=== PATIENT | male | born 1935 | race Caucasian/White ===

== ENCOUNTER 2017-07-21 11:41 | Inpatient (IN) | payer OTHER, MEDICARE ==
[~2017-07-21] VITALS: Ht 177.8 cm; Wt 87.3 kg
--- NOTE | ~2017-07-21 | HC ---
[facility] [place] [address] CONSULTATION Name: DAODINA Room #: 215-[facility] IN M.R.#: [id number] Admission: 07/21/17 Attend Phys: Spenser Workman MD Discharge: Date of : 34 Report #: [id number] THIS REPORT FOR: //name// CC: FAM unknown Spenser Workman DATE OF SERVICE: 07/21/2017 REASON FOR CONSULTATION: Myocardial infarction. HISTORY OF PRESENT ILLNESS: The patient is an 82-year-old gentleman, with a history of hypertension, presented with a history of exertional chest pain and shortness of breath. He was seen at [facility] Emergency Department where an initial EKG demonstrated sinus bradycardia with nonspecific intraventricular conduction delay. He had recurrent pain in the Emergency Department and a followup EKG demonstrated anterolateral injury pattern. He has had treatment with heparin and aspirin and has ongoing pain. He was life-flighted to [facility]. No prior history of myocardial infarction. He denies heart failure symptoms including orthopnea, paroxysmal nocturnal dyspnea or lower extremity edema. No history of palpitations, near syncope or syncope. ALLERGIES: No known drug allergies. MEDICATIONS: He takes no medicines regularly. PAST MEDICAL HISTORY: His past history and medical records have been reviewed and include a history of appendectomy, cholecystectomy, hypertension. SOCIAL HISTORY: He is a former smoker, but it has been many years since he smoked. FAMILY HISTORY: Notable for a brother who had a heart attack. REVIEW OF SYSTEMS: All systems negative except as that noted above. PHYSICAL EXAMINATION: GENERAL: He is a pleasant gentleman, in mild to moderate ongoing distress. VITAL SIGNS: Blood pressure is 124/69, heart rate of 50 and regular, respirations unlabored, saturations 96% on room air. HEENT: There are neither xanthelasma, subcutaneous xanthomata, oral mucosal or digital cyanosis or kyphoscoliosis present. CHEST: Clear to auscultation and percussion. CARDIOVASCULAR: Regular rate and rhythm with distant heart sounds. ABDOMEN: Soft and nontender. EXTREMITIES: Without cyanosis, clubbing or edema. Radial pulses are 2+. NEUROLOGIC: He is alert with a nonfocal exam. [facility] [address] [place] [address] CONSULTATION Name: DINA DAO Room #: 215-P [facility] IN .R.#: [id number] Admission: 07/21/17 Attend Phys: Spenser Workman MD Discharge: Date of : 34 Report #: [id number] LABORATORY DATA: EKG as detailed above. Coagulation parameters are normal. White count 7.8, hemoglobin 14, magnesium 2.1, platelet count 288, creatinine 1.1, potassium 3.6. IMPRESSION: 1. Acute anterolateral myocardial infarction. 2. Hypertension. 3. Unknown lipid status. RECOMMENDATIONS: 1. Anticoagulant and antiplatelet therapy. 2. Hold beta blockade for now due to relative bradycardia. 3. Urgent coronary angiography. I have outlined the angiographic procedure in detail including its associated risks as well as the risks associated with a percutaneous intervention. After a thorough discussion of the procedure, risks and alternatives and after answering his questions, he is agreeable to proceeding. <ELECTRONICALLY SIGNED> By: James Naik MD, FACC 07/24/17 0854 1222 50 James Naik MD, FACC /nt
--- NOTE | ~2017-07-21 | CATHLAB ---
[facility] [address] [place] [address] INVASIVE PROCEDURE REPORT Name: DAOFREDDYTRISH Room #: 215-P ADM IN M.R.#: [id number] Admission: 07/21/17 Attend Phys: Spenser Workman MD Discharge: Date of : 34 Date of Service: 07/21/17 1341 Report #: [id number] THIS REPORT FOR: //name// APPROVED REPORT Study performed: 07/21/2017 11:56:24 Patient Details Patient Status: In-Patient Room #: The patient is a 82 year-old male Event Personnel James Naik General Accountant, Gricelda Brown RTR Monitor, Spring Quiroga Monitor, Gage Gonzalez RN RN, Lanny Nuñez RN RN, Delmis Geller RTR, PROVISIONING ANALYST Scrub Procedures Performed Art Access - R femoral artery* 12475 Initial Mod Sed Same Phys/QHP Gr5y 697312 83996 Mod Sed Same Phys/QHP Ea 015891 Left Heart Cath w/or w/o Coronaries [id number] [facility] MARKY Revasc AMI Total/Sub Single LAD C9606 AMIREVSING Hemostasis w/ Mynx Indication STEMI Procedure Narrative The patient was brought emergently to the Cardiac Catheterization Laboratory and was prepped and draped in a sterile manner. The Right Groin^ was infiltrated with 1% Lidocaine subcutaneous anesthesia. A PINNACLE 6FR Sheath #[id number] sheath was inserted into the RFA^. Coronary angiography was performed using coronary diagnostic catheters. The right coronary system was accessed and visualized with a JR 4 catheter. The left coronary system was accessed and visualized with a JL 4 catheter. The left ventricle was accessed and visualized with a Pigtail catheter. Left ventricular/Aortic Valve gradient assessed via catheter pullback. Left ventriculogram was performed in MAGALLON projection. Closure device was deployed with a 6 Fr Mynx. The patient tolerated the procedure well and there were no complications associated with the procedure. There was no hematoma. Intraoperative Conscious Sedation Sedation start time: 12:21 Case end Time: 12:57 Fentanyl 50 mcg Versed [address] [address] INVASIVE PROCEDURE REPORT Name: DINA DAO Room #: 215-P [facility] IN [facility].#: [id number] Admission: 07/21/17 Attend Phys: Spenser Workman MD Discharge: Date of : 34 Date of Service: 07/21/17 1341 Report #: [id number] Fluoro Time: 7.00 minutes Dose: DAP 8476.00 cGycm2 1145 mGy Contrast Type and Amount: Visipaque 210 ml Diagnostic Cath Left Main Normal left main LAD Subtotaled mid LAD stenosis 99% with associated thrombus Diagonal 1 Moderately small, mild plaquing Circumflex Large but nondominant OM1 The first marginal branch exhibited moderate proximal plaquing OM2 Distally arising second marginal branch with mild plaquing Right Coronary Dominant right coronary with mild 20-30% proximal and mid vessel plaquing Left Ventriculography The left ventricle is mildly dilated in size with abnormal contractility. The left ventricular ejection fraction is estimated to be 40-45%. Left ventricular wall motion abnormalities are present. There is 1+ mitral insufficiency. Anterolateral, apical, and inferoapical hypokinesis. EF 40-45% Hemodynamics The aortic pressure is 157/75 mmHg with a mean of 105 mmHg. The left ventricular pressure is 142/14 mmHg with a mean of mmHg. The left ventricular end diastolic pressure is 24 mmHg. PCI Technique Lesion Anticoagulation was achieved with Heparin, Integrilin. Patient was preloaded with Brillinta. Percutaneous coronary intervention was performed on the mid left anterior descending artery segment. The lesion stenosis prior to intervention was 99% with NAIDA 1 flow. A LAUNCHER 6FR EBU 4 #[id number] Guide Catheter was used to engage the left main ostium. A Luge Wire .014 x 182CM #[id number] Interventional Guidewire was used to cross the lesion. BALLOON DILATION A Balloon catheter Euphora RX 3.0 x 12 #[id number] was inserted and inflated up to 14atm for 29seconds. Repeat angiography revealed the following post-dilatation results: moderate residual stenosis. STENT DEPLOYMENT A drug-eluting stent RESOLUTE RX 3.5 X 22 #[id number] was inserted and inflated up to 12.00atm for 26seconds. Repeat angiography revealed the following post-stent deployment results: 0% residual [address] [address] INVASIVE PROCEDURE REPORT Name: DINA DAO Room #: 215-P [facility] IN M.R.#: [id number] Admission: 07/21/17 Attend Phys: Spenser Workman MD Discharge: Date of : 34 Date of Service: 07/21/17 134 Report #: [id number] stenosis. POST STENT DEPLOYMENT BALLOON DILATION A Balloon catheter TREK NC RX 3.5 X 15 #[id number] was inserted and inflated up to 22.00atm for 16seconds. Additional Inflation: 22.00atm for 21seconds. Additional Inflation: 22.00atm for 22seconds. Final angiography reveals 0 % stenosis with NAIDA 3 flow. Conclusion 1. Moderate left ventricular dysfunction with anterolateral hypokinesis. EF 40-45% 2. LM normal 3. LAD subtotal occlusion, stented with 3.5 x 22mm Resolute stent 4. Circumflex: mild plaquing 5. RCA: mild plaquing Recommendations Cardiac Rehabilitation Referral Aggressive Medical Therapy Medications Administered SIMA Inhibitor (any) Aspirin (any) Beta Hitesh (any) Statin (any) Ticagrelor <ELECTRONICALLY SIGNED> By: James Naik MD, [facility] 07/21/171340 40 40 James Naik MD, FACC /INF
--- NOTE | ~2017-07-21 | EKG ---
[address] [place] [address] ELECTROCARDIOGRAM REPORT Name: DINA DAO Room #: 215-P ADM IN M.R.#: [id number] Admission: 07/21/17 Attend Phys: Spenser Workman MD Discharge: Date of : 34 Report #: [id number] THIS REPORT FOR: //name// [facility] Test Date: 2017-07-22 Test Time: 08:54:54 Pat Name: DINA DAO Department: Room: 215 P Gender: M Elevator Serviceman: artemio : 1935 Requested By: James Naik Order Number: [id number] MD: Kameron Ayers Measurements Intervals [place] Rate: 65 P: -47 FL: 241 QRS: -70 QRSD: 120 T: -24 QT: 461 QTc: 480 Interpretive Statements Sinus rhythm with ventricular premature complexes Prolonged FL interval Nonspecific IVCD with LAD Left ventricular hypertrophy Electronically Signed On 07-22-2017 12:23:36 CDT by Kameron Ayers [email or web address] <ELECTRONICALLY SIGNED> By: Kameron Ayers MD 07/22/17 1223 0854 0854 Kameron Ayers MD /JED
--- NOTE | ~2017-07-21 | EKG ---
[address] [place] [address] ELECTROCARDIOGRAM REPORT Name: DINA DAO Room #: 215-P ADM IN M.R.#: [id number] Admission: 07/21/17 Attend Phys: Spenser Workman MD Discharge: Date of : 34 Report #: [id number] THIS REPORT FOR: //name// [facility] Test Date: 2017-07-21 Test Time: 15:04:30 Pat Name: DINA DAO Department: Room: Gender: M Nurse Informaticist: artemio : 1935 Requested By: James Naik Order Number: [id number] MD: Kameron Ayers Measurements Intervals [place] Rate: 50 P: -69 ME: 243 QRS: -70 QRSD: 116 T: 20 QT: 465 QTc: 424 Interpretive Statements Sinus or ectopic atrial rhythm Prolonged ME interval Nonspecific IVCD with LAD Left ventricular hypertrophy Inferior infarct, age indeterminate Anterior infarct, old No previous ECG available for comparison Electronically Signed On 07-22-2017 12:08:30 CDT by Kameron Ayers [email or web address] <ELECTRONICALLY SIGNED> By: Kameron Ayers MD 07/22/17 1208 1504 1504 Kameron Ayers MD /JED
--- NOTE | ~2017-07-21 | EKG ---
[address] [place] [address] ELECTROCARDIOGRAM REPORT Name: DINA DAO Room #: 215-P ADM IN M.R.#: [id number] Admission: 07/21/17 Attend Phys: Spenser Workman MD Discharge: Date of : 34 Report #: [id number] THIS REPORT FOR: //name// [facility] Test Date: 2017-07-23 Test Time: 06:54:31 Pat Name: DINA DAO Department: Room: 215 P Gender: M Ice Puller: ZAN : 1935 Requested By: Kameron Aeyrs Order Number: [id number] MD: Kameron Ayers Measurements Intervals [place] Rate: 60 P: -35 MA: 216 QRS: -70 QRSD: 125 T: 269 QT: 491 QTc: 491 Interpretive Statements Sinus rhythm Borderline prolonged MA interval Left bundle branch block Compared to ECG 07/22/2017 08:54:54 Left bundle-branch block now present Ventricular premature complex(es) no longer present Intraventricular conduction delay no longer present Left ventricular hypertrophy no longer present Electronically Signed On 07-23-2017 19:50:54 CDT by Kameron Ayers [email or web address] <ELECTRONICALLY SIGNED> By: Kameron Ayers MD 07/23/17 1950 0654 0654 Kameron Ayers MD /EPI
--- NOTE | ~2017-07-21 | EKG ---
[address] [address] ELECTROCARDIOGRAM REPORT Name: DINA DAO Room #: 215-P ADM IN M.R.#: [id number] Admission: 07/21/17 Attend Phys: Spenser Workman MD Discharge: Date of : 34 Report #: [id number] THIS REPORT FOR: //name// [facility] Test Date: 2017-07-24 Test Time: 06:26:56 Pat Name: DINA DAO Department: Room: 215 P Gender: M Professional Advisor: NEREYDA : 1935 Requested By: Kameron Ayers Order Number: [id number] MD: James Naik Measurements Intervals [place] Rate: 60 P: -19 ID: 204 QRS: -75 QRSD: 120 T: 117 QT: 458 QTc: 458 Interpretive Statements Sinus rhythm Nonspecific intraventricular conduction delay T-wave abnormality, consider anterior ischemia Inferior infarct, old Compared to ECG 07/23/2017 06:54:31 No significant change was found Electronically Signed On 07-24-2017 8:45:56 CDT by James Naik [email or web address] <ELECTRONICALLY SIGNED> By: James Naik MD, [facility] 07/24/17 0845 0626 James Naik MD, [facility] /EPI
[2017-07-21 20:00] VITALS: BP 145/83
[2017-07-22 03:53] LABS: HEMATOCRIT 38.6 % (42.0-52.0); HEMOGLOBIN 12.9 gm/dL (14.0-18.0); MCH 28.2 pg (26.0-34.0); MCHC 33.5 g/dL (28.0-37.0); MCV 84.1 fL (80.0-100.0); RBC 4.58 mil/uL (4.50-6.00); RDW 15.1 % (10.5-14.5); WBC 8.8 thou/uL (4.0-11.0)
[2017-07-22 04:06] LABS: ANION GAP 11 mmol/L (7-16); BUN 18 mg/dL (7-18); CHLORIDE 106 mmol/L (98-107); CHOLESTEROL 151 mg/dL (<200); CO2 23 mmol/L (21-32); GLUCOSE 113 mg/dL (74-106); HDL CHOLESTEROL 42 mg/dL (>40); LDL CHOLESTEROL 80 mg/dL (<100); POTASSIUM 3.3 mmol/L (3.5-5.1); SGOT 61 U/L (15-37); SGPT 18 U/L (30-65); SODIUM 140 mmol/L (136-145); TC:HDL 3.6 Ratio (Not establshd); TOTAL BILIRUBIN 0.6 mg/dL (<0.1-1.0); TOTAL PROTEIN 5.5 g/dL (6.4-8.2); TRIGLYCERIDE 147 mg/dL (<150); VLDL 29 mg/dL (<40)
[2017-07-22 04:13] LABS: SERUM ASSESSMENT Clear
[2017-07-22 04:14] LABS: TROPONIN-I 18.29 ng/mL (<0.06)
[2017-07-22 04:30] VITALS: BP 158/85
[2017-07-22 07:55] VITALS: BP 142/82
[2017-07-22 11:24] LABS: MAGNESIUM 1.9 mg/dL (1.8-2.4)
[2017-07-22 12:00] VITALS: BP 132/61
[2017-07-22] MEDS ORDERED: NORVASC10 MG PO (14:44)
[2017-07-22 15:50] VITALS: BP 145/63
[2017-07-22 19:55] VITALS: BP 146/71
[2017-07-23 04:32] VITALS: BP 155/73
[2017-07-23 07:37] VITALS: BP 162/86
[2017-07-23 11:04] VITALS: BP 160/75
[2017-07-23 15:14] VITALS: BP 154/72
[2017-07-23 16:07] LABS: CALCIUM 8.7 mg/dL (8.5-10.1); POTASSIUM 3.8 mmol/L (3.5-5.1)
[2017-07-23 20:16] VITALS: BP 141/82
[2017-07-23 21:45] LABS: MAGNESIUM 1.9 mg/dL (1.8-2.4); POTASSIUM 3.9 mmol/L (3.5-5.1)
[2017-07-23 22:20] LABS: FOLIC ACID 11.7 ng/mL (8.6-58.9); TSH 2.985 uIU/mL (0.358-3.740)
[2017-07-24 04:36] VITALS: BP 149/88
[2017-07-24 04:38] LABS: ABSOLUTE NEUTROPHILS 7.2 thou/uL (1.4-8.2); BASOPHILS 0.6 % (0.0-2.0); HEMATOCRIT 40.5 % (42.0-52.0); HEMOGLOBIN 13.7 gm/dL (14.0-18.0); LYMPHOCYTES 14.3 % (24.0-44.0); MCH 28.3 pg (26.0-34.0); MCHC 33.8 g/dL (28.0-37.0); MCV 83.6 fL (80.0-100.0); MONOCYTES 7.7 % (1.0-8.0); PLATELET COUNT 243 thou/uL (150-400); POLYS 74.4 % (36.0-66.0); RBC 4.85 mil/uL (4.50-6.00); RDW 15.3 % (10.5-14.5); WBC 9.7 thou/uL (4.0-11.0)
[2017-07-24 04:52] LABS: CALCIUM 8.5 mg/dL (8.5-10.1); CREATININE 0.9 mg/dL (0.7-1.3); POTASSIUM 3.8 mmol/L (3.5-5.1)
[2017-07-24 07:45] VITALS: BP 140/91
[2017-07-24] MEDS ORDERED: ASPIRIN81 M2 PO (10:55)
[2017-07-24] MEDS ORDERED: FOLIC ACID 1 MG1 MG PO (10:55)
[2017-07-24] MEDS ORDERED: METOPROLOL SUCC25 M1 PO (10:55)
[2017-07-24] MEDS ORDERED: ACETAMINOPHEN325 M1 PO (10:55)
[2017-07-24] MEDS ORDERED: PLAVIX 75 MG TA75 MG PO (10:55)
[2017-07-24] MEDS ORDERED: VITAMIN B-1100 M2 PO (10:55)
[2017-07-24] MEDS ORDERED: BENAZEPRIL HCL20 MG PO (10:55)
[2017-07-24] MEDS ORDERED: ATORVASTATIN CA40 MG PO (10:55)
[2017-07-24] MEDS ORDERED: BRILINTA90 MG PO (11:02)
[2017-07-24 11:28] VITALS: BP 140/91
== END 2017-07-24 12:00 | disposition home or self-care (01) | DRG 246 ==
LOC: 2N 11:41 → ENTRNSPT 07-24 11:51 → EDTRNSPTSTS 07-24 11:57 → 2N 07-24 12:00
PROVIDERS: Hospitalist; Internal Medicine
PROC: B2111ZZ Fluoroscopy of Multiple Coronary Arteries using Low Osmolar Contrast (ICD-10-PCS; principal; 2017-07-21)
PROC: 4A023N7 Measurement of Cardiac Sampling and Pressure, Left Heart, Percutaneous Approach (ICD-10-PCS; principal; 2017-07-21)
PROC: 027034Z Dilation of Coronary Artery, One Artery with Drug-eluting Intraluminal Device, Percutaneous Approach (ICD-10-PCS; principal; 2017-07-21)
PROC: B2151ZZ Fluoroscopy of Left Heart using Low Osmolar Contrast (ICD-10-PCS; principal; 2017-07-21)
DX: I21.09 ST elevation (STEMI) myocardial infarction involving other coronary artery of anterior wall (principal); I50.21 Acute systolic (congestive) heart failure; I47.2 Ventricular tachycardia; I11.0 Hypertensive heart disease with heart failure; I25.5 Ischemic cardiomyopathy; J44.9 Chronic obstructive pulmonary disease, unspecified; E78.00 Pure hypercholesterolemia, unspecified; F10.10 Alcohol abuse, uncomplicated; Z87.891 Personal history of nicotine dependence; Z79.82 Long term (current) use of aspirin; Z79.899 Other long term (current) drug therapy; Z90.49 Acquired absence of other specified parts of digestive tract; Z82.49 Family history of ischemic heart disease and other diseases of the circulatory system
CPT/HCPCS: 10797